=== PATIENT | male | born 1995 | race Caucasian/White ===

== ENCOUNTER 2020-03-24 13:20 | Outpatient (CLI) | payer OTHER ==
[2020-03-24 13:44] LABS: Anion Gap 17 mmol/L (10-20); BUN (Urea Nitrogen) 18 mg/dL (8.9-20.6); Calc. Creatinine Clearance 0 mL/min (70-130); Calcium 9.7 mg/dL (7.8-10.44); Carbon Dioxide 22 mmol/L (22-29); Chloride 107 mmol/L (98-107); Estimated GFR-MDRD 68; Glucose 95 mg/dL (70-105); Potassium 4.1 mmol/L (3.5-5.1); Sodium 142 mmol/L (136-145)
== END 2020-03-24 13:21 | disposition home or self-care (01) ==
LOC: MADLAB 13:20
PROVIDERS: ATTEND Internal Medicine Gastroenterology
DX: R79.89 Other specified abnormal findings of blood chemistry (principal)
CPT/HCPCS: 36415; 80048

== ENCOUNTER 2021-02-02 12:22 | Emergency (ER) | payer SELFPAY ==
[2021-02-02] MEDS ORDERED: Tetracaine 0.5% PF 4 ML BOT ONE (12:44)
[2021-02-02] MEDS ORDERED: Fluorescein Opthalmic Strip ONE (12:44)
== END 2021-02-02 13:51 | disposition home or self-care (01) ==
LOC: MADERS 12:22
DX: S05.01XA Injury of conjunctiva and corneal abrasion without foreign body, right eye, initial encounter (principal); W50.4XXA Accidental scratch by another person, initial encounter
CPT/HCPCS: 99283

== ENCOUNTER 2023-03-14 08:19 | Outpatient (CLI) | payer SELFPAY | END 2023-03-14 08:20 | disposition home or self-care (01) | LOC: MADRAD 08:19 | PROVIDERS: ATTEND Registered Nurse | DX: N50.89 Other specified disorders of the male genital organs (principal); N50.9 Disorder of male genital organs, unspecified | CPT/HCPCS: 76870; 93976 ==